=== PATIENT | female | born 1935 | race Caucasian/White ===

== ENCOUNTER → 2018-05-23 | Outpatient (CLI) | payer MEDICARE ==
[~2018-05-23] MED LIST: REGADENOSON 0.4 MG/5 ML SYRINGE ONE
== END | disposition home or self-care (01) ==
LOC: CFH 12:19
PROVIDERS: ATTEND Internal Medicine Cardiovascular Disease
DX: I10 Essential (primary) hypertension (principal)
CPT/HCPCS: 78452; A9502; J2785

== ENCOUNTER 2018-07-26 19:28 | Emergency (ER) | payer MEDICARE ==
[~2018-07-26] VITALS: Ht 165.1 cm; Wt 71.6 kg
[2018-07-26 19:35] VITALS: BP 145/88
[2018-07-26] MEDS ORDERED: DIPH,PERTUSS(ACELL),TET VAC/PF 0.5 ML IM-VACC ONE ×2 (19:47→20:00)
--- NOTE | 2018-07-26 19:53 | NUR ---
PT RIGHT HAND WITH SMALL PUNCTURE WOUND. RIGHT HAND CLEANED WITH SALINE AND DRESSED WITH BACITRACIN DRESSING.
[2018-07-26] MEDS ORDERED: OXYcodone/APAP 7.5/325MG TABLET ONE (19:54)
[2018-07-26] MEDS ORDERED: BACITRACIN ZINC OINT 500U/GM, 0.9 GM ONE ×3 (20:42→20:43)
[2018-07-26] MEDS ORDERED: POTASSIUM CHLORIDE 20 MEQ TAB.ER.PRT ONE (21:15)
[2018-07-26] MEDS ORDERED: KETOROLAC 30 MG/1 ML ONE (21:15)
== END 2018-07-26 20:58 | disposition home or self-care (01) ==
LOC: ED 19:55
DX: S61.031A Puncture wound without foreign body of right thumb without damage to nail, initial encounter (principal); E11.8 Type 2 diabetes mellitus with unspecified complications; E03.9 Hypothyroidism, unspecified; X58.XXXA Exposure to other specified factors, initial encounter; Y93.89 Activity, other specified; Y92.89 Other specified places as the place of occurrence of the external cause; Y99.8 Other external cause status
CPT/HCPCS: 90471; 90715; 99283

== ENCOUNTER → 2018-08-14 | Outpatient (CLI) | payer MEDICARE | END | disposition home or self-care (01) | LOC: CFH 08:38 | PROVIDERS: ATTEND Internal Medicine Cardiovascular Disease | DX: R07.89 Other chest pain (principal) | CPT/HCPCS: 78452; 93017; A9502; J2785 ==

== ENCOUNTER 2020-06-21 18:43 | Emergency (ER) | payer MEDICARE ==
[~2020-06-21] VITALS: Ht 166.4 cm; Wt 91.4 kg
[~2020-06-21 18:43] MED LIST changes: +ASPI-496 PO; +FURO20TA3 PO; +GABA-827 PO; +LAMO25TB7 PO; +LEVO100T5 PO; +METF500T17 PO; +METO25TA91 PO; +OMEP40CA42 PO; -REGADENOSON 0.4 MG/5 ML SYRINGE ONE; +SIMV40TA20 PO
[2020-06-21 18:56] VITALS: BP 162/94
[2020-06-21] MEDS ORDERED: FLUORESCEIN OPHTHALMIC 1 MG STRIP ONE (19:42)
[2020-06-21] MEDS ORDERED: PROPARACAINE OPHTH 0.5%, 15ML ONE (19:42)
== END 2020-06-21 20:20 | disposition home or self-care (01) ==
LOC: ED 20:13
DX: H10.212 Acute toxic conjunctivitis, left eye (principal); E11.9 Type 2 diabetes mellitus without complications; E03.9 Hypothyroidism, unspecified
CPT/HCPCS: 99282